=== PATIENT | female | born 2000 | race Caucasian/White ===

== ENCOUNTER 2019-02-28 18:46 | Emergency (ER) | payer MEDICAID ==
[~2019-02-28] VITALS: Ht 170.2 cm; Wt 79.1 kg
[2019-02-28] MEDS ORDERED: ketorolac trometh inj. 60 MG/2 ML VIAL IM ONE (19:05)
[2019-02-28] MEDS ORDERED: orphenadrine citrate 60mg/2ml inj. IM ONE (19:05)
[2019-02-28] MEDS ORDERED: HYDROcodone/acetaminophen 10/325mg tab PO ONE (19:25)
[2019-02-28] MEDS ORDERED: CYCL-1 PO (19:59)
[2019-02-28] MEDS ORDERED: TRAM50TA2 PO (19:59)
[2019-02-28] MEDS ORDERED: KETO10TA2 PO (19:59)
[2019-02-28 20:19] VITALS: BP 109/61
== END 2019-02-28 20:22 | disposition home or self-care (01) ==
LOC: ER 18:48
DX: S39.012A Strain of muscle, fascia and tendon of lower back, initial encounter (principal); M54.42 Lumbago with sciatica, left side; G89.29 Other chronic pain; W18.30XA Fall on same level, unspecified, initial encounter; Y93.89 Activity, other specified; Y92.89 Other specified places as the place of occurrence of the external cause; Y99.9 Unspecified external cause status
CPT/HCPCS: 96372; 99284; J1885; J2360

== ENCOUNTER 2023-04-08 15:10 | Emergency (ER) | payer MEDICAID ==
[~2023-04-08] VITALS: Ht 170.2 cm; Wt 80.0 kg
[~2023-04-08 15:10] MED LIST: CYCL-1 PO; KETO10TA2 PO; METH4TAB81 PO
[2023-04-08 15:24] VITALS: BP 148/94; PULSE 87; RESP 22; TEMP 97.1; O2SAT 98
[2023-04-08 17:12] LABS: BASOPHILS % (AUTO) 0.3 % (0-1); EOSINOPHILS % (AUTO) 0.2 % (0-6); HEMATOCRIT 41.4 % (35.0-45.0); HEMOGLOBIN 14.4 g/dl (12.0-16.0); LYMPHOCYTES # (AUTO) 0.6 X10'3 (1.1-4.8); LYMPHOCYTES % (AUTO) 5.6 % (21-51); MEAN CORPUSCULAR HEMOGLOBIN 30.3 PG (27.0-31.0); MEAN CORPUSCULAR HGB CONC 34.8 g/dL (33.0-36.5); MEAN CORPUSCULAR VOLUME 87.1 FL (78-98); MEAN PLATELET VOLUME 8.7 FL (7.4-10.4); MONOCYTES # (AUTO) 0.3 X10'3 (0-0.9); NEUTROPHILS # (AUTO) 9.9 X10'3 (1.8-7.7); NEUTROPHILS % (AUTO) 90.9 % (42-75); PLATELET COUNT 237 X10'3 (140-440); RED BLOOD COUNT 4.75 X10'6 (4.20-5.60); RED CELL DISTRIBUTION WIDTH 13.8 % (11.5-14.5); WHITE BLOOD COUNT 10.9 X10'3 (4.5-11.0)
[2023-04-08 17:25] LABS: ALANINE AMINOTRANSFERASE 31 U/L (12-78); ALBUMIN 4.3 G/DL (3.4-5.0); ALBUMIN/GLOBULIN RATIO 1.1 (1.1-1.5); ALKALINE PHOSPHATASE 65 IU/L (46-116); ANION GAP 12 (8-16); ASPARTATE AMINO TRANSFERASE 27 U/L (10-37); BILIRUBIN,TOTAL 0.6 MG/DL (0.1-1.0); BLOOD UREA NITROGEN 13 MG/DL (7-18); BUN/CREATININE RATIO 17.8 (10.0-20.0); CALCIUM 9.1 MG/DL (8.5-10.1); CHLORIDE 102 MMOL/L (99-107); CREATININE 0.73 MG/DL (0.40-0.90); GLUCOSE 129 MG/DL (70-104); LIPASE 29 U/L (16-77); POTASSIUM 3.4 MMOL/L (3.5-5.1); SODIUM 136 MMOL/L (135-145); TOTAL CARBON DIOXIDE 22.3 MMOL/L (24-32); TOTAL PROTEIN 8.2 G/DL (6.4-8.2); eCRCL 117 ML/MIN; eGFR > 90 ML/MIN
== END 2023-04-08 22:30 | disposition left against medical advice (07) ==
LOC: ER 15:10
DX: R10.9 Unspecified abdominal pain (principal); R11.10 Vomiting, unspecified; Z53.21 Procedure and treatment not carried out due to patient leaving prior to being seen by health care provider
CPT/HCPCS: 36415; 80053; 83690; 85025; 99281; 99283

== ENCOUNTER 2023-11-23 13:20 | Outpatient (CLI) | payer MEDICAID | END 2023-11-23 23:59 | disposition home or self-care (01) | LOC: MRI 13:20 | PROVIDERS: ATTEND Nurse Practitioner | DX: M51.16 Intervertebral disc disorders with radiculopathy, lumbar region (principal); R20.9 Unspecified disturbances of skin sensation; M48.061 Spinal stenosis, lumbar region without neurogenic claudication; M47.897 Other spondylosis, lumbosacral region; M25.552 Pain in left hip; L92.8 Other granulomatous disorders of the skin and subcutaneous tissue | CPT/HCPCS: 72148; 73721 ==

== ENCOUNTER 2023-12-25 06:25 | Outpatient (CLI) | payer MEDICAID ==
[~2023-12-25 06:25] MED LIST changes: +LIDOcaine 1%/PF 5ML 10 MG/ML VIAL ONE
[2023-12-25] MEDS ORDERED: LIDOcaine 1% 30ml preserv. free vial ONE (06:26)
[2023-12-25] MEDS ORDERED: GADOTERATE MEGLUMINE 7.5 MMOL/15 ML VIAL IV ONE (06:26)
[2023-12-25] MEDS ORDERED: iohexol 300 MG/1 ML 50ml polymer ONE (06:26)
== END 2023-12-25 23:59 | disposition home or self-care (01) ==
LOC: RAD 06:25
PROVIDERS: ATTEND Physician Assistant Surgical
DX: M25.552 Pain in left hip (principal); M54.50 Low back pain, unspecified; Z79.899 Other long term (current) drug therapy
CPT/HCPCS: 27093; 73722; 77002; A9575; J3490; Q9967; 73525

== ENCOUNTER 2024-12-01 06:19 | Outpatient (CLI) | payer MEDICAID ==
[~2024-12-01 06:19] MED LIST changes: -LIDOcaine 1%/PF 5ML 10 MG/ML VIAL ONE
[2024-12-01] MEDS ORDERED: LIDOcaine 1%/PF 5ML 10 MG/ML VIAL ONE (06:32)
[2024-12-01] MEDS ORDERED: iohexol 300 MG/1 ML 50ml polymer ONE (06:32)
[2024-12-01] MEDS ORDERED: GADOTERATE MEGLUMINE 7.5 MMOL/15 ML VIAL IV ONE (06:32)
[2024-12-01] MEDS ORDERED: LIDOcaine 1% 30ml preserv. free vial ONE (06:32)
--- NOTE | 2024-12-01 09:44 | RADIOLOGY REPORT ---
CLINICAL INFORMATION: Right hip pain. TECHNIQUE: Multisequence multiplanar MR arthrogram images of the right hip were obtained without con trast. COMPARISON: No prior dedicated imaging of the right hip was available for comparison at time dictatio n. Correlation made to prior left hip MRI exam, which included some larger [id number] images inclu ding the right hip. FINDINGS: BONES: No acute fracture or osteonecrosis. Alpha angle measures 59 degrees. JOINT: Mild joint space narrowing of the right hip. Small joint effusion. Small tear of the chondrola bral junction of the superior labrum and extending to the posterior superior labrum. BURSAE: Mild edema and trace fluid in the trochanteric bursae bilaterally. TENDONS: [id number] tendinosis of the distal gluteus medius and minimus tendons. Origins of the rectus femoris tendon and hamstring tendons are intact. Distal insertion of the iliopsoas tendon is intact. MUSCLES: Normal muscle bulk. No significant atrophy. No evidence of muscle strain or tear. OTHER: No other significant findings. IMPRESSION: 1. Small tear of the chondrolabral junction of the superior labrum and extending to the posterior sup erior labrum. 2. Additional findings as described above
== END 2024-12-01 23:59 | disposition home or self-care (01) ==
LOC: RAD 06:19
PROVIDERS: ATTEND Physician Assistant Surgical
DX: S73.191A Other sprain of right hip, initial encounter (principal); S43.431A Superior glenoid labrum lesion of right shoulder, initial encounter; M16.11 Unilateral primary osteoarthritis, right hip; M54.50 Low back pain, unspecified; M25.451 Effusion, right hip; X58.XXXA Exposure to other specified factors, initial encounter; Y93.89 Activity, other specified; Y92.89 Other specified places as the place of occurrence of the external cause; Y99.8 Other external cause status
CPT/HCPCS: 27093; 73722; 77002; A9575; J2003; J3490; Q9967

== ENCOUNTER 2024-12-28 16:01 | Emergency (ER) | payer MEDICAID ==
[~2024-12-28] VITALS: Ht 170.2 cm; Wt 90.9 kg
[2024-12-28 16:15] VITALS: TEMP 97.8
--- NOTE | 2024-12-28 16:27 | Physician Documentation ---
History of Present Illness Chief Complaint: Bloody Emesis Stated Complaint: VOMITING BLOOD HPI Patient is a 24-year-old female that presents to the emergency department for evaluation of epigastric pain nausea vomiting an intermittent hematemesis. Patient reports that she has a 4 year history of intermittent nausea and vomiting but this is the 1st time she has ever had blood in her emesis. Patient reports that it was a moderate amount. Patient reports that she has epigastric and right upper quadrant pain with palpation. Patient reports that she has a hi story of hypertension and a cardiac history she is being followed by client account representative. 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 History as above. Patient reports no other additional bleeding and denies black stools. She does state that she has previously prescribed omeprazole but she ran out awhile ago. Medication Reconciliation Allergies: Coded Allergies: No Known Allergies (Unverified , 04/08/23) Scheduled Duloxetine HCl (Duloxetine HCl), 1 CAP PO DAILY, (Reported) Ivabradine HCl (Ivabradine HCl), 0.5 BID, (Reported) Omeprazole (Prilosec), 1 CAP PO DAILY, (Reported) Discontinued Medications Cyclobenzaprine* (Cyclobenzaprine*), 1 TABLET PO Q8H PRN for muscle spasms Discontinued Reason: patient no longer taking Ketorolac Tromethamine (Ketorolac Tromethamine), 1 TAB PO Q6H PRN Discontinued Reason: patient no longer taking Methylprednisolone (Medrol Dosepak), 4 MG PO UD Discontinued Reason: patient no longer taking Past Medical History Past Medical History: Chronic Back Pain Past Surgical History: no surgical history Lives In: Home Review of Systems ROS All review of systems negative except as per HPI Physical Exam Vital Signs: Temperature: 97.8, Heart Rate: 89, Respiratory Rate: 16, BP: 155/102, Pulse Oximetry: 97, Weight: 90.910 Oxygen Flow Rate: 0 Physical Exam General: Patient is awake, alert, oriented x4 in no acute distress Head: Normocephalic and atraumatic. Eyes: Conjunctival normal. EOMI. PERRL. ENT: Mucous membranes moist. Neck: Supple, trachea is midline. Chest: Clear to auscultation bilaterally without rales, rhonchi, or wheezes. There is no accessory muscle use or retractions. Cardiac: RRR without murmurs, gallops, or rubs. Abd: Soft, nondistended, nontender, with normoactive bowel sounds. No guarding, rebound, or rigidity. :Good rectal tone, brown stools, guaiac negative Progress Results/Orders Results/Orders Orders - NEGIN YEE Luis Felipe [employer] Urinalysis, Cult If Indicated (12/28/24 16:21) Hcg, Ur Ql (12/28/24 16:21) Cbc/Diff (12/28/24 16:21) Lipase (12/28/24 16:21) CMP (12/28/24 16:21) Electrocardiogram (12/28/24 16:21) Hs Troponin I W Calculations (12/28/24 18:21) Vital Signs 12/28/24 16:15 Temp 97.8 Pulse 89 Resp 16 B/P (MAP) 155/102 Pulse Ox 97 O2 Flow Rate 0 EKG/XRAY/CT/US/VASC/MRI EKG : Additional Comment EKG interpreted by myself shows time of 1637, rate 72, sinus rhythm, normal axis, no ST changes Medical Decision Making Findings Patient presents to the emergency room with episodes of hematemesis this morning. She has had some vomiting since that time with no blood. No prior instances and no black stools. Guaiac negative. Differentials include but are not limited to Mariangel-Castillo, ulcer, esophageal varices, blood describe lysis. Vital signs reassuring with no anemia or elevation of BUN and guaiac negative stools. Patient has been suffering from her nausea and vomiting for five years and he had not feel this is an acute attack. History suspicious for possible ulcer versus Mariangel-Castillo. No objective evidence of bleeding although I do believe patient. We will treat patient with nausea medicine and place her on a PPI with instructions to follow up with her doctor. ER precautions regarding copious amounts of blood or black stools discussed. Departure Disposition: HOME / SELF CARE / HOMELESS Impression: Primary Impression: Hematemesis Condition: Stable Discharge Instructions: Hematemesis Additional Instructions: We will put you on omeprazole for possible ulcer. Continue to follow up with your doctor. Return for black stools or copious amounts of bleeding. Referrals: NO PRIMARY CARE PROVIDER (PCP) Prescriptions Ondansetron 8mg ODT (Ondansetron Odt) 8 Mg Tab.rapdis 1 TAB PO Q6H for nausea/vomiting for 3 Days, #12 TAB 0 Refills Prov: ANUJ RESENDEZ MD 12/28/24 Pantoprazole Sodium (PROTONIX tablet) 40 Mg Tablet.dr 1 TAB PO DAILY for 30 Days, #30 TAB 0 Refills Prov: ANUJ RESENDEZ MD 12/28/24 Education Educated: Patient Educated regarding: diagnosis, treatment, need for follow up Signature Scribe Signature: No scribe Attestation: The note accurately reflects work and decisions made by me.Anuj Resendez MD 12/28/24 19:06 NEGIN YEE Dec 28, 2024 16:27 ANUJ RESENDEZ MD Dec 28, 2024 18:29
--- NOTE | 2024-12-28 16:39 | ELECTROCARDIOGRAPH REPORT ---
[facility] Test Date: 2024-12-28 Test Time: 16:37:25 Pat Name: EMERY CORDOVA Department: [facility] Patient ID: [id number] Room: Gender: F Rn Correctional: : 2000 Requested By: NEGIN YEE Order Number: [id number] Reading MD: Measurements Intervals [place] Rate: 72 P: 72 MS: 105 QRS: 60 QRSD: 96 T: 22 QT: 390 QTc: 427 Interpretive Statements Sinus rhythm Short MS interval Please click the below link to view image of tracing.
[2024-12-28 16:44] LABS: MEAN PLATELET VOLUME 8.4 FL (7.4-10.4); RED CELL DISTRIBUTION WIDTH 13.5 % (11.5-14.5)
[2024-12-28 17:05] LABS: CREATININE 0.66 MG/DL (0.40-0.90); TOTAL CARBON DIOXIDE 26.8 MMOL/L (24-32); eCRCL 127 ML/MIN; eGFR > 90 ML/MIN
[2024-12-28] MEDS ORDERED: DULO20CA18 PO (17:14)
[2024-12-28] MEDS ORDERED: OMEP40CA21 PO (17:14)
[2024-12-28] MEDS ORDERED: IVAB5TAB3 (17:14)
[2024-12-28 17:19] LABS: LEUKOCYTE ESTERASE ,URINE NEGATIVE (Neg); NITRITES, URINE NEGATIVE (Neg); OCCULT BLOOD,URINE NEGATIVE (Neg)
[2024-12-28 17:20] LABS: URINE HCG NEGATIVE (NEG)
[2024-12-28 17:32] LABS: UA COLLECTION TYPE CLN CATCH MIDSTREAM
[2024-12-28 18:58] VITALS: BP 147/80; PULSE 84; RESP 16; O2SAT 98
[2024-12-28] MEDS ORDERED: PANT-47 PO (19:05)
[2024-12-28] MEDS ORDERED: ONDA-245 PO (19:05)
[2024-12-28] MEDS: ondansetron 4mg rapidly disintigrating tab PO ONE (19:19)
[2024-12-28] MEDS: pantoprazole 40mg Tablet.DR PO ONE (19:19)
[2024-12-28 20:31] LABS: OCCULT BLOOD STOOL NEGATIVE (Neg)
== END 2024-12-28 19:23 | disposition home or self-care (01) ==
LOC: ER 16:02
DX: K92.0 Hematemesis (principal); I10 Essential (primary) hypertension; Z79.899 Other long term (current) drug therapy
CPT/HCPCS: 36415; 80053; 81003; 81025; 82272; 83690; 85025; 93005; 99284